=== PATIENT | female | born 1995 | race Asian ===

== ENCOUNTER 2017-06-01 12:25 | Emergency (ER) | payer OTHER ==
--- NOTE | 2017-06-01 13:40 | UC ---
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 with a box knife, bleeding stopped - History Of Current Complaint Chief Complaint: UCLaceration Stated Complaint: FINGER LACERATION Time Seen by Provider: 06/01/17 13:16 Hx Last Menstrual Period: currently Laceration Location: Finger Onset/Duration: Sudden Onset Severity: Moderate - Allergies/Home Medications Allergies/Adverse Reactions: Allergies Allergy/AdvReac Type Severity Reaction Status Date / Time No Known Allergies Allergy Verified 06/01/17 13:08 PMH/Surg Hx/FS Hx/Imm Hx - Surgical History Surgical History: None - Social History Alcohol Use: Rare Substance Use Type: None Smoking Status (MU): Never Smoked Tobacco - Immunization History Most Recent Tetanus Shot: 2008 Review of Systems Constitutional: Negative Skin: Other - left index finger laceration Eyes: Negative ENT: Negative Respiratory: Negative Cardiovascular: Negative Gastrointestinal: Negative Genitourinary: Negative Motor: Negative Neurovascular: Negative Musculoskeletal: Negative Neurological: Negative Psychological: Negative All Other Systems Reviewed And Are Negative: Yes Physical Exam Triage Information Reviewed: Yes Vital Signs: Initial Vital Signs Temp 36.6 C 06/01/17 13:02 Pulse 54 06/01/17 13:02 Resp 16 06/01/17 13:02 BP 119/78 06/01/17 13:02 Pulse Ox 100 06/01/17 13:02 Eye Exam: Normal ENT Exam: Normal Dental Exam: Normal Neck exam: Normal Neck: Positive: 1 Respiratory Exam: Normal Cardiovascular Exam: Normal Abdominal Exam: Normal Musculoskeletal Exam: Normal Neurological Exam: Normal Psychological Exam: Normal Skin Exam: Normal, Other Skin: Positive: significant lesion(s) - left index finger skin 0.3x0.1cm and 5mm deep skin avulsion, no bleeding noted Laceration Course/Dx - Course/Dx Course Of Treatment: Tdap 0,5mg IM x1, last Tdap was about 8-9 yers ago. Woundcare provided. - Differential Dx - Laceration/Wound Provider Diagnoses: skin avulsion Discharge - Discharge Plan Condition: Stable Disposition: HOME Prescriptions: Mupirocin 2% OINT* [Bactroban 2 % Oint*] 1 applic TOPICAL BID 7 Days #1 tube Patient Education Materials: Skin Avulsion (ED), Acute Wound Care (ED) Additional Instructions: FOLLOW UP IN [facility] FOR WOUND CHECK
[2017-06-01] MEDS ORDERED: Tetan/Diph/Pertus SYR(Tdap)* 0.5 ML SYR(BOOSTRIX) use SYR IM ONE (13:49)
== END 2017-06-01 14:13 | disposition home or self-care (01) ==
LOC: UCEAST 12:25
DX: S61.211A Laceration without foreign body of left index finger without damage to nail, initial encounter (principal); W26.0XXA Contact with knife, initial encounter; Y92.9 Unspecified place or not applicable
CPT/HCPCS: 90715; 99202; G0463

== ENCOUNTER 2019-07-27 01:02 | Emergency (ER) | payer OTHER ==
[2019-07-27 01:49] LABS: ABS Basophils 0.1 10^3/ul (0-0.2); ABS Eosinophils 0.3 10^3/ul (0-0.6); ABS Lymphocytes 1.7 10^3/ul (1.0-4.8); ABS Monocytes 0.6 10^3/ul (0-0.8); ABS Neutrophils 4.1 10^3/ul (1.5-7.7); Eosinophil % 4.5 %; Hematocrit 40 % (35-47); Hemoglobin 13.5 g/dL (12.0-16.0); Lymphocyte % 25.2 %; Mean Corpuscular HGB Conc 34 g/dL (31-36); Mean Corpuscular Hemoglobin 29 pg (27-31); Mean Corpuscular Volume 87 fL (80-97); Mean Platelet Volume 7.7 fL (7.4-10.4); Nucleated Red Blood Cells % 0.1; Platelet Count 210 10^3/uL (150-450); Red Blood Count 4.58 10^6 /uL (3.70-4.87); Red Cell Distribution Width 13 % (10-15); White Blood Count 6.8 10^3/uL (3.5-10.8)
[2019-07-27 01:58] LABS: INR 1.02 (0.82-1.09)
[2019-07-27 02:05] LABS: Potassium 3.6 mmol/L (3.5-5.0)
[2019-07-27 02:06] LABS: Albumin 4.3 g/dL (3.2-5.2); Albumin/Globulin Ratio 1.5 (1-3); BUN/Creatinine Ratio 23.1 (8-20); Calcium 9.2 mg/dL (8.6-10.3); EGFR African American 137.9 (>60); Globulin 2.9 g/dL (2-4); Total Bilirubin 0.5 mg/dL (0.2-1.0); Total Protein 7.2 g/dL (6.4-8.9)
--- NOTE | 2019-07-27 04:22 | ED ---
Palpitations / Dysrhythmia - HPI Summary HPI Summary: The patient is a 23 y/o female presenting to [facility] with a chief complaint of sudden onset palpitations beginning around 0000 this morning and lasting for about a half hour before resolving. She reports that she has experienced two similar episodes a year ago and also two months ago with unknown etiology and benign labs, EKGs, CXR, and Holter monitor workup. Early this morning, she woke up feeling palpitations that would not stop so she came into the ED. She denies any chest pain or shortness of breath. She does not currently feel the palpitations. She notes she had just returned from [place] a few days ago. She does not have any known tick exposure. She has not seen a pre parole counseling aide before. No PMHx. Nonsmoker, rare EtOH, no substance use. Medications reviewed. Allergies noted. - History of Current Complaint Chief Complaint: EDDysrhythmPalp Time Seen by Provider: 07/27/19 04:11 Hx Obtained From: Patient Onset/Duration: Sudden Onset, Lasting Minutes, Resolved Timing: Constant Severity Initially: Moderate Severity Currently: None Character: Fast Aggravating: Nothing Alleviating: Nothing Associated Signs & Symptoms: Negative - Allergy/Home Medications Allergies/Adverse Reactions: Allergies Allergy/AdvReac Type Severity Reaction Status Date / Time No Known Allergies Allergy Verified 07/27/19 01:12 Home Medications: Home Medications NK [No Home Medications Reported] 07/27/19 [History Confirmed 07/27/19] PMH/Surg Hx/FS Hx/Imm Hx Endocrine/Hematology History: Denies: Hx Diabetes Respiratory History: Denies: Hx Asthma - Surgical History Surgical History: None Surgery Procedure, Year, and Place: none Infectious Disease History: No Infectious Disease History: Reports: Traveled Outside the in Last 30 Days - [facility] - Family History Known Family History: Negative: Hypertension, Renal Disease, Respiratory Disease - Social History Alcohol Use: Rare Hx Substance Use: No Substance Use Type: Reports: None Hx Tobacco Use: No Smoking Status (MU): Never Smoked Tobacco Review of Systems Positive: Palpitations. Negative: Chest Pain Negative: Shortness Of Breath All Other Systems Reviewed And Are Negative: Yes Physical Exam - Summary Physical Exam Summary: Constitutional: Well-developed, Well-nourished, Alert. (-) Distressed Skin: Warm, Dry HENT: Normocephalic; Atraumatic Eyes: Conjunctiva normal Neck: Musculoskeletal ROM normal neck. (-) JVD, (-) Stridor, (-) Tracheal deviation Cardio: Rhythm regular, rate normal, Heart sounds normal; Intact distal pulses; The pedal pulses are 2+ and symmetric. Radial pulses are 2+ and symmetric. Pulmonary/Chest wall: Effort normal. (-) Respiratory distress, (-) Wheezes, (-) Rales Abd: Soft, (-) tenderness, (-) Distension, (-) Guarding, (-) Rebound Musculoskeletal: (-) Edema Neuro: Alert, Oriented x3 Psych: Mood and affect Normal Triage Information Reviewed: Yes Vital Signs On Initial Exam: Initial Vitals Temp Pulse Resp BP Pulse Ox 98.9 F 72 16 124/94 100 07/27/19 01:10 07/27/19 01:10 07/27/19 01:10 07/27/19 01:10 07/27/19 01:10 Vital Signs Reviewed: Yes Procedures - Sedation Patient Received Moderate/Deep Sedation with Procedure: No Diagnostics - Vital Signs Vital Signs Temp Pulse Resp BP Pulse Ox 07/27/19 03:45 98.6 F 62 20 136/89 99 07/27/19 01:10 98.9 F 72 16 124/94 100 - Laboratory Lab Results: Lab Results 07/27/19 07/27/19 07/27/19 Range/Units 01:40 01:40 01:40 WBC 6.8 (3.5-10.8) 10^3/uL RBC 4.58 (3.70-4.87) 10^6 /uL Hgb 13.5 (12.0-16.0) g/dL Hct 40 (35-47) % MCV 87 (80-97) fL MCH 29 (27-31) pg MCHC 34 (31-36) g/dL RDW 13 (10-15) % Plt Count 210 (150-450) 10^3/uL MPV 7.7 (7.4-10.4) fL Neut % (Auto) 60.5 % Lymph % (Auto) 25.2 % [place] % (Auto) 8.8 % Eos % (Auto) 4.5 % Baso % (Auto) 1.0 % Absolute Neuts (auto) 4.1 (1.5-7.7) 10^3/ul Absolute Lymphs (auto) 1.7 (1.0-4.8) 10^3/ul Absolute Monos (auto) 0.6 (0-0.8) 10^3/ul Absolute Eos (auto) 0.3 (0-0.6) 10^3/ul Absolute Basos (auto) 0.1 (0-0.2) 10^3/ul Absolute Nucleated RBC 0.0 10^3/ul Nucleated RBC % 0.1 INR (Anticoag Therapy) 1.02 (0.82-1.09) Sodium 139 (135-145) mmol/L Potassium 3.6 (3.5-5.0) mmol/L Chloride 110 (101-111) mmol/L Carbon Dioxide 22 (22-32) mmol/L Anion Gap 7 (2-11) mmol/L BUN 15 (6-24) mg/dL Creatinine 0.65 (0.51-0.95) mg/dL Est GFR ( Amer) 137.9 (>60) Est GFR (Non-Af Amer) 114.0 (>60) BUN/Creatinine Ratio 23.1 H (8-20) Glucose 128 H (70-100) mg/dL Calcium 9.2 (8.6-10.3) mg/dL Total Bilirubin 0.50 (0.2-1.0) mg/dL AST 13 (13-39) U/L ALT 12 (7-52) U/L Alkaline Phosphatase 58 (34-104) U/L Troponin I 0.00 (<0.03) ng/mL Total Protein 7.2 (6.4-8.9) g/dL Albumin 4.3 (3.2-5.2) g/dL Globulin 2.9 (2-4) g/dL Albumin/Globulin Ratio 1.5 (1-3) Result Diagrams: 07/27/19 01:40 07/27/19 01:40 Lab Statement: Any lab studies that have been ordered have been reviewed, and results considered in the medical decision making process. - EKG 0119 Cardiac Rate: NL - 69 BPM EKG Rhythm: Sinus Rhythm Summary of EKG Findings: An EKG at 0119 reveals normal sinus rhythm of 69 BPM, nml axis, nml intervals. No STEMI. No acute changes. Course/Dx - Course Course Of Treatment: Patient is a 23 y/o female presenting with episodes fast palpitations tonight resolving after 30 minutes without any chest pain or shortness of breath. Previous similar symptoms with negative workups with PCP. No known tick exposure. Physical exam is negative for any acute abnormalities. Lab results are benign. An EKG at 0119 reveals normal sinus rhythm of 69 BPM, nml axis, nml intervals, no STEMI. Patient is safe for discharge as symptoms have resolved. Patient agrees with plan. Outpatient follow up with cardiology if needed. - Diagnoses Provider Diagnoses: Palpitations Discharge ED - Sign-Out/Discharge Documenting (check all that apply): Patient Departure - Patient will be discharged home. - Discharge Plan Condition: Stable Disposition: HOME Patient Education Materials: Heart Palpitations (DC) Referrals: [facility] [Outside] - 3 Days Additional Instructions: Follow up with your [facility] in 2-3 days. Return to the emergency department for any new or worsening symptoms. - Attestation Statements Document Initiated by Scribe: Yes Documenting Scribe: Leticia Gray Provider For Whom Carmela is Documenting (Include Credential): Dr. Dimitri Ignacio MD Scribe Attestation: Leticia Mcwilliams scribed for Dr. Dimitri Ignacio MD on 07/28/19 at 1328. Status of Scribe Document: Ready
[2019-07-27 04:37] VITALS: BP 136/93
== END 2019-07-27 04:36 | disposition home or self-care (01) ==
LOC: ED 01:02
DX: R00.2 Palpitations (principal)
CPT/HCPCS: 36415; 80053; 84484; 85025; 85610; 93005; 99282